=== PATIENT | female | born 1945 | race Caucasian/White ===

== ENCOUNTER 2016-11-10 14:44 | Observation (INO) | payer OTHER ==
--- NOTE | 2016-11-10 15:07 | CPEKG ---
Heart Rate: 87 RR Interval: 690 P-R Interval: 160 QRSD Interval: 86 QT Interval: 388 QTC Interval: 467 P [place]: 37 QRS [place]: -7 T Wave [place]: 41 EKG Severity - NORMAL ECG - EKG Impression: SINUS RHYTHM Electronically Signed By: Cinthya Lindo 11-Nov-2016 00:11:05
--- NOTE | 2016-11-10 15:09 | EDPHY ---
H & P Time Seen by Provider: 11/10/16 14:56 HPI/ROS: CHIEF COMPLAINT: Possible stroke, word-finding difficulties HISTORY OF PRESENT ILLNESS: 71-year-old female presents to the emergency department reporting that at 220pm, she developed abrupt onset of word-finding difficulty. 20 minutes prior to this, the patient began to have a migraine headache which she has a history of. She took nitroglycerin which is her migraine treatment. Her headache resolved. Then she had difficulty with her speech. Patient describes word-finding difficulty but the family describes no dysarthria. Words were clear but inappropriate. Patient immediately presented to the emergency department. She denies any numbness or tingling in her face, denies any weakness in the face, numbness or tingling or weakness in the arms or legs. She has no prior history of CVAs or TIAs. She has no prior history of hypertension. She does have a history of coronary artery spasm for which she takes long-acting nitro paste as well as nitroglycerin. Family describes that she was well prior to these events. EN route, the patient took another nitroglycerin. On arrival to the emergency department she feels that her word- finding difficulty has greatly improved. No fever, chills, chest pain, shortness of breath, palpitations, vomiting, diarrhea, urinary complaints, lightheadedness. REVIEW OF SYSTEMS: Aside from elements discussed in the HPI, a comprehensive 10-point review of systems was reviewed and is negative. PAST MEDICAL HISTORY: Coronary artery spasm, migraines, high cholesterol. SOCIAL HISTORY: Nonsmoker, occasional alcohol. Here with her family. VITAL SIGNS Reviewed by me. GENERAL: Well-developed, well-nourished, pleasant, in no distress. HEENT: Atraumatic. Eyes: PERRL, EOMI, no nystagmus. No icterus. No injection. Mouth: moist mucous membranes. No erythema or lesions. Neck: No meningitis. Nontender to palpation. No adenopathy. LUNGS: Clear to auscultation bilaterally, no wheezes, rhonchi or rales. CARDIAC: Regular rate and rhythm, no rubs, murmurs or gallops. ABDOMEN: Soft, nontender, nondistended, bowel sounds normal. BACK: No CVA tenderness. EXTREMITIES: No trauma. No edema. Range of motion is normal throughout. NEURO: Alert and oriented, cranial nerves II through XII are intact. Motor strength 5 over 5 in all major muscle groups. Sensation intact to light touch. Normal gait. Mild word-finding difficulty when naming objects. Fluent speech otherwise. SKIN: Warm and dry, no rash. PSYCHIATRIC: Normal mentation, no agitation. Constitutional: Initial Vital Signs Temperature (C) 36.7 C 11/10/16 14:55 Heart Rate 91 11/10/16 14:55 Respiratory Rate 16 11/10/16 14:55 Blood Pressure 167/79 H 11/10/16 14:55 O2 Sat (%) 94 11/10/16 14:55 O2 Delivery Mode Room Air Allergies/Adverse Reactions: Sulfa (Sulfonamide Antibiotics) Allergy (Intermediate, Unverified 11/10/16 16:54 ) Hives Home Medications: Medication Instructions Recorded Cetirizine [ZyrTEC 10 mg (*)] 10 mg PO DAILY 11/10/16 Citalopram Hydrobromide 10 mg PO DAILY 11/10/16 [Citalopram HBr] Dextran 70/Hypromellose 1 each OP DAILY PRN 11/10/16 [Artificial Tears] Diltiazem [Cardizem 60 MG (*)] 120 mg PO DAILY 11/10/16 Estradiol [Estradiol Transdermal 1 each TD Q7D 11/10/16 Patch] Fluticasone Nasal [Flonase Nasal 1 sprays NASAL DAILY 11/10/16 [place]] Isosorbide Mononitrate [Imdur 30 30 mg PO DAILY 11/10/16 mg (*)] Nitroglycerin [Nitrostat 0.4 mg 0.4 mg SL Q5M PRN 11/10/16 (*)] Pramipexole Di-HCl [Mirapex 1 mg 0.5 mg PO HS 11/10/16 (*)] Pravastatin Sodium 20 mg PO DAILY 11/10/16 SUMAtriptan [Imitrex 25 MG (*)] 25 mg PO Q4 PRN #20 tab 11/11/16 Medical Decision Making - Diagnostics EKG Interpretation: 12-LEAD EKG: Please see the full report in [facility]. My interpretation: Normal sinus rhythm Imaging: Results: CT scan of the head was obtained. I viewed the images independently on the PACS system. I discussed the results of the study with the radiologist. Impression: No evidence of stroke or hemorrhage. Please see the full radiology report. ED Course/Re-evaluation: 71-year-old female presents to the emergency department with an onset of word- finding difficulty. Patient's CT scan is negative. Her symptoms are somewhat mild and waxing and waning in the emergency department. Patient evaluated by Dr. Cortez, from [facility]. Patient's symptoms have largely resolved. Differential includes hypo perfusion secondary to nitroglycerin use, complex migraine, or TIA. Patient lives in [place]. She would prefer to have a evaluation for TA to be completed as soon as possible, as they are traveling extensively from here. CTA is were ordered. Patient will be admitted to the hospitalist service, to the [facility], for further evaluation for stroke versus complex migraine. 1559: Consulted with Dr. Tanner, hospitalist, who accepts admission. Dr Coto also notified of patients admission. CT angiograms also normal. Differential Diagnosis: Differential diagnoses the patient's presenting complaints was considered including but not limited to intracranial injury, TIA, ischemic cerebrovascular accident, hemorrhagic cerebrovascular accident, hypoglycemia, complex migraine , metastases, tumor, seizure, or electrolyte abnormality - Data Points Laboratory Results: Laboratory Results 11/10/16 14:50 11/10/16 14:50 Medications Given: Discontinued Medications Aspirin (Aspirin) 324 mg PO EDNOW ONE Stop: 11/10/16 15:34 Last Admin: 11/10/16 16:01 Dose: 324 mg Cetirizine HCl (Zyrtec) 10 mg PO DAILY CLAIR Stop: 05/10/17 08:59 Last Admin: 11/11/16 09:52 Dose: 10 mg Citalopram Hydrobromide (Celexa) 10 mg PO DAILY CLAIR Stop: 05/10/17 08:59 Last Admin: 11/11/16 09:39 Dose: 10 mg Diltiazem HCl (Cardizem Er Q24hr) 120 mg PO DAILY CLAIR Stop: 05/10/17 08:59 Last Admin: 11/11/16 09:40 Dose: 120 mg Fluticasone Propionate (Flonase Nasal [place]) 1 sprays EACHNARE DAILY CLAIR Stop: 05/10/17 08:59 Last Admin: 11/11/16 09:38 Dose: 1 spray Isosorbide Mononitrate (Imdur) 30 mg PO DAILY [facility] Stop: 05/10/17 08:59 Last Admin: 11/11/16 09:40 Dose: 30 mg Pramipexole Dihydrochloride (Mirapex) 0.5 mg PO HS [facility] Stop: 05/09/17 20:59 Last Admin: 11/10/16 21:37 Dose: 0.5 mg Pravastatin Sodium (Pravachol) 20 mg PO DAILY CLAIR Stop: 05/10/17 08:59 Last Admin: 11/11/16 09:38 Dose: 20 mg Departure - Departure Disposition: [facility] Clinical Impression: Expressive aphasia, possible tia Condition: Fair
[2016-11-10 15:13] LABS: % IMMATURE GRANULYOCYTES 0.5 % (0.0-1.1); ABSOLUTE IMMATURE GRANULOCYTES 0.06 10^3/uL (0.00-0.10); ADD DIFF? NO; ADD MORPH? NO; ADD SCAN? NO; ATYPICAL LYMPHOCYTE FLAG 0 (0-99); FRAGMENT RBC FLAG 0 (0-99); HEMOGLOBIN 14.5 g/dL (12.6-16.3); LEFT SHIFT FLG 0 (0-99); LIPEMIA HEMOLYSIS FLAG 80 (0-99); MEAN CELL HEMOGLOBIN 31.9 pg (27.9-34.1); MEAN CELL HEMOGLOBIN CONCENTR. 33.7 g/dL (32.4-36.7); MEAN CELL VOLUME 94.5 fL (81.5-99.8); MEAN PLATELET VOLUME 9.3 fL (8.7-11.7); PLATELET CLUMPS FLAG 0 (0-99); PLATELET COUNT 274 10^3/uL (150-400); RED BLOOD CELL COUNT 4.55 10^6/uL (4.18-5.33); RED CELL DISTRIBUTION WIDTH 13.3 % (11.5-15.2)
[2016-11-10 15:22] LABS: INR 0.96 (0.83-1.16); PROTIME(PATIENT) 12.7 SEC (12.0-15.0)
[2016-11-10 15:25] LABS: ANION GAP 14 mEq/L (8-16); CALCIUM 9.2 mg/dL (8.5-10.4); CARBON DIOXIDE 24 mEq/l (22-31); CHLORIDE 98 mEq/L (97-110); CREATININE 0.8 mg/dL (0.6-1.0); GLOMERULAR FILTRATION RATE > 60; GLUCOSE 91 mg/dL (70-100); POTASSIUM 4.6 mEq/L (3.5-5.2); SODIUM 136 mEq/L (134-144)
--- NOTE | 2016-11-10 15:27 | CT ---
CT Brain (Without Contrast) November 10, 2016 at 1501 hours History: Stroke. Comparison: None. Technique: Axial computed tomographic images of the brain without contrast. Dose reduction techniques were utilized. Findings: Ventricles, cisterns, and sulci are widened consistent with atrophy. No hydrocephalus, mid line shift/herniation, or epidural/subdural hematomas. No acute intraparenchymal hemorrhage or mass e ffect. Cerebrovascular atherosclerosis. Hypodensities in the white matter of bilateral cerebral hemis pheres. Bone windows demonstrate no displaced fractures. Paranasal sinuses and mastoid air cells are clear. Impression: 1. Moderate atrophy. 2. No acute hemorrhage, hydrocephalus, or mass effect. 3. Cerebrovascular atherosclerosis. 4. No definite acute infarct. 5. Moderate microvascular ischemic disease. Critical results relayed by Dr. Metzger to Dr. Lindo on November 10, 2016 at 1520 hours.
[2016-11-10] MEDS ORDERED: ASPIRIN 81 MG CHEWABLE TAB PO ONE (15:33)
[2016-11-10 15:37] LABS: TROPONIN I < 0.012 ng/mL (0-0.034)
[2016-11-10] MEDS ORDERED: IOPAMIDOL (ISOVUE 370) 75 ML BTL IV ONE (15:39)
--- NOTE | 2016-11-10 16:26 | DX ---
PA and Lateral Chest November 10, 2016 Clinical Indications: Acute neurologic change in a 71-year-old female; no previous chest films are a vailable for comparison. Findings: There is prominence of the right hilum is noted which is probably of vascular origin in th is patient with dilated main pulmonary artery and aorta. The lungs are clear. Mild peribronchial thi ckening is seen. There is elevation of the anterior aspect of the right hemidiaphragm. The heart and pulmonary vessels are normal. There are no pleural effusions and no pneumothorax. The bones are unremarkable for this age. Impressions 1. Right hilar prominence is probably vascular in origin. Further assessment with chest CT could be obtained as clinically directed. 2. Suspect airways disease.
--- NOTE | 2016-11-10 16:58 | CT ---
CT Angiography of the Head Clinical Indications: Were finding difficulty. R29.818 Neurological changes strongly suggesting intra cerebral aneurysm. Technique: During automated power injection of 85 mL of Isovue-370, thinly collimated spiral (volume tric) multidetector helical imaging was performed through the head. Independent three-dimensional [employer] workstation was used for additional manipulations of images by the radiologist. Dose reduction techniques were utilized. Findings: The [place] and its branches are normal. No evidence of aneurysm or vascular mal formation. No occlusions are found. Impression: Normal. I telephoned results to Dr. Cinthya Lindo at 1650 hours.
[2016-11-10] MEDS ORDERED: NON-FORMULARY NEW DRUG (Dextran 70/Hypromellose [Artificial Tears] 1 EACH) OP PRN (17:03)
--- NOTE | 2016-11-10 17:12 | CT ---
CT Angiography of the Neck (With Contrast) Clinical Indications: Word finding difficulty. Technique: During IV administration of 85 mL of Isovue-370 intravenously, helical multidetector data acquisition was obtained from the upper thorax cephalad through the skull base. The thinly collimat ed data were manipulated in multiple projections on the 3D computer workstation by the radiologist. Dose reduction techniques were utilized. Findings: Carotid bifurcations are widely patent. Both vertebral arteries are open. No evidence of occlusion, hemodynamically significant stenosis or ulceration. Bottom slice of the study demonstrates enlargement of main pulmonary artery, measuring up to 4.6 cm d iameter. The ascending aorta measures 4.1 cm diameter. Impressions 1. Patent carotid and vertebral arteries in the neck. 2. Pulmonary arterial hypertension. I telephoned results to Dr. Cinthya Lindo at 1650 hours. Note: All stenoses are calculated using NASCET Criteria.
--- NOTE | 2016-11-10 17:31 | GHP ---
[f rep st] HISTORY AND PHYSICAL DATE OF ADMISSION: 11/10/2016 CHIEF COMPLAINT: Difficulty word finding, TIA. HISTORY OF PRESENT ILLNESS: Patient is a pleasant 71-year-old female with history of coronary spasm, hyperlipidemia, and migraines, presenting with difficulty word finding. She is here with her colt pedraza visiting her kid from [place]. They drove in on Monday. Approximately 2 p.m. 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 She takes nitroglycerin for these sym ptoms, which prevents a full migraine. She will have a headache from the nitroglycerin normally that resolves in 20 minutes. After taking nitroglycerin today, the headache was gone. She then was teddy g to tell a story about her granddaughter, but could not get the words out. She said she could see t he words and hear them, but was not able to express them to their family. At that time, she took a s econd nitroglycerin. Her said she had no facial droop. She was able to tell him her name, h er date without difficulty, but still could not tell the story. She was able to finally get th e words out like she wanted here in the emergency room. At the time of my interview, she states that she is feeling like her normal self. She denies palpitations. She intermittently gets chest pain spasm-like in her chest with radiation t o the left arm. The last time was a couple months ago. She is followed by a elementary school professional in [facility] for coronary spasm. Denies any weakness or numbness with the episode today. REVIEW OF SYSTEMS: I completed a 10-point review of systems, negative except as noted in HPI. PAST MEDICAL HISTORY: 1. Coronary spasm. 2. Aortic aneurysm. 3. Hyperlipidemia. 4. Restless legs. PAST SURGICAL HISTORY: Hysterectomy, left TKA, 2 bunion surgeries, and tonsillectomy. ALLERGIES: Sulfa. MEDICATIONS: Diltiazem XL 120 mg daily, Imdur 30 mg daily, nitroglycerin 0.5 p.r.n. for migraines or chest pain, COQ 100 mg. daily. FAMILY HISTORY: Stomach cancer in grandparents. Mother of an aortic aneurysm. Father at a ge 48. PHYSICAL EXAM: VITAL SIGNS: Temperature 36.7, blood pressure was 167/79 now 144/75, heart rate in 7 0s, respirations 16, 98% on room air. GENERAL: Lying in bed, no acute distress, smiling and laughin g with her family. HEENT: PERRLA, EOMI. Oropharynx clear without exudate or erythema. CV: Regula r rate and rhythm. No murmurs, gallops, or rubs. LUNGS: Clear to auscultation. No crackles. ABDO MEN: Soft, nontender, nondistended. Positive bowel sounds. : No suprapubic tenderness. No Fole y. MUSCULOSKELETAL: 5/5 upper and lower extremity strength. NEURO: 2-12 intact. No pronator drif t. Negative Babinski. +2 symmetric biceps and brachioradialis reflexes. +1 bilateral patellar refl exes. LABS: Sodium 146, potassium 4.6, chloride 98, carbon dioxide 28, BUN 16, creatinine 0.8, glucose 91. Troponin less than 0.012. Calcium 9.2. Coags: INR 0.9, PT 12.7, PTT 25. WBC 11.6, hemoglobin 14 , hematocrit 43, platelets 274. IMAGING: EKG personally reviewed by me: Normal sinus rhythm, no evidence of ST elevation or depress ion, no arrhythmia. CT head: Moderate atrophy, no acute hemorrhage, hydrocephalus, or mass effect, moderate microvascular ischemic disease. ASSESSMENT AND PLAN: 1. Difficulty word finding concern for transient ischemic attack: Patient's symptoms have now reso lved. CT head is negative. Neck and head CTA are pending. There is no evidence of arrhythmia on EK G. Will admit to the hospital for cardiac monitoring, echocardiogram. She will be evaluated by PT, OT, and Speech Pathology. Neurology has been contacted and will see patient. Patient will need init iation of aspirin. Check lipids and hemoglobin A1c. 2. History of migraines: Migraine this afternoon that was relieved with nitroglycerin which she nor roque takes. Query if symptoms are secondary to her migraine, but will do a complete evaluation as s tated above. 3. History of coronary spasm: Continue diltiazem, Imdur, and nitroglycerin. 4. Restless legs: Continue Mirapex. 5. Diet: N.p.o. until evaluated by swallow evaluation. 6. Deep venous thrombosis prophylaxis: SCDs. DISPOSITION: Patient warrants inpatient admission given concern for TIA requiring cardiac monitoring and echocardiogram. /[id number]/MODL
[2016-11-10] MEDS ORDERED: TEARS/DEXTRAN 70/HYPROMELLOSE 15 ML OPHT.BTL OP PRN (17:52)
[2016-11-10] MEDS ORDERED: PRAMIPEXOLE 1 MG TAB PO SCH (21:00)
[2016-11-11 05:48] LABS: ANION GAP 7 mEq/L (8-16); CALCIUM 8.6 mg/dL (8.5-10.4); CARBON DIOXIDE 26 mEq/l (22-31); CHLORIDE 105 mEq/L (97-110); CHOLESTEROL 197 mg/dL (140-220); CHOLESTEROL/HDL RATIO 2.49 RATIO (1.00-4.44); CREATININE 0.9 mg/dL (0.6-1.0); GLOMERULAR FILTRATION RATE > 60; GLUCOSE 93 mg/dL (70-100); HIGH DENSITY LIPOPROTEIN 79 mg/dL (40-85); LDL/HDL RATIO 1.33 RATIO (1.00-3.22); LOW DENSITY LIPOPROTEIN 105 mg/dL (80-100); NON-HIGH DENSITY LIPOPROTEIN 118 mg/dL (90-129); POTASSIUM 4.8 mEq/L (3.5-5.2); SODIUM 138 mEq/L (134-144); TRIGLYCERIDE 68 mg/dL (35-135); VERY LOW DENSITY LIPOPROTEINS 13 mg/dL (8-25)
[2016-11-11] MEDS ORDERED: PRAVASTATIN SODIUM 20 MG TAB PO SCH (09:00)
[2016-11-11] MEDS ORDERED: NON-FORMULARY NEW DRUG (Citalopram Hydrobromide [Citalopram Hbr] 10 MG) PO SCH (09:00)
[2016-11-11] MEDS ORDERED: CETIRIZINE 10 MG TAB PO SCH (09:00)
[2016-11-11] MEDS ORDERED: CITALOPRAM 20 MG TAB PO SCH (09:00)
[2016-11-11] MEDS ORDERED: FLUTICASONE NASAL 120 SPRAYS/16 GM MDI EACHNARE SCH (09:00)
[2016-11-11] MEDS ORDERED: DILTIAZEM 60 MG TAB PO SCH (09:00)
[2016-11-11] MEDS ORDERED: DILTIAZEM CD 120 MG CAP PO SCH (09:00)
[2016-11-11] MEDS ORDERED: ISOSORBIDE MONONITRATE 30 MG TAB.SR PO SCH (09:00)
[2016-11-11 10:00] LABS: % IMMATURE GRANULYOCYTES 0.4 % (0.0-1.1); ABSOLUTE IMMATURE GRANULOCYTES 0.03 10^3/uL (0.00-0.10); ADD DIFF? NO; ADD MORPH? NO; ADD SCAN? NO; ATYPICAL LYMPHOCYTE FLAG 0 (0-99); FRAGMENT RBC FLAG 0 (0-99); HEMATOCRIT 41.7 % (38.0-47.0); LEFT SHIFT FLG 0 (0-99); LIPEMIA HEMOLYSIS FLAG 80 (0-99); MEAN CELL HEMOGLOBIN 31.6 pg (27.9-34.1); MEAN CELL HEMOGLOBIN CONCENTR. 33.6 g/dL (32.4-36.7); MEAN CELL VOLUME 94.1 fL (81.5-99.8); MEAN PLATELET VOLUME 9.1 fL (8.7-11.7); PLATELET CLUMPS FLAG 0 (0-99); PLATELET COUNT 241 10^3/uL (150-400); RED BLOOD CELL COUNT 4.43 10^6/uL (4.18-5.33); RED CELL DISTRIBUTION WIDTH 13.4 % (11.5-15.2)
--- NOTE | 2016-11-11 10:11 | ECHO ---
[id number] + + [id number] : : [place] [address] : : [phone] + + Adult Echocardiographic Report + -------+ :Name: LUIS KU MStudy Date: 11/11/2016 08:30 AM : : Hospital Admission Number: [id number] Locati on: 143: :: 1945 Gender: Female Height: 66 in : :Age: 71 yrs Race: WH Weight: 165 lb : :Reason For Study: TIA : : BSA: 1.8 meter s2 : :History: Congenital Heart Defect of enlarged PA, coronary : :spasms : + -------+ MMode/2D Measurements & Calculations IVSd: 1.1 cm RVDd: 2.3 cm FS: 31.6 % LVOT diam: 1.9 cm LVPWd: 0.90 cm LVIDd: 5.6 cm EDV(Teich): LVOT area: LVIDs: 3.8 cm 155.6 ml 2.8 cm2 ESV(Teich): 63.9 ml EF(Teich): 58.9 % LVLd ap4: 7.4 cm SV(MOD-sp4): EDV(MOD-sp4): 44.0 ml 88.0 ml LVLs ap4: 6.9 cm ESV(MOD-sp4): 44.0 ml EF(MOD-sp4): 50.0 % Normal Measurement Values: + + :LVIDd (3.5-5.7cm) IVSd (0.6-1.1cm) LVPWd (0.6-1.1cm) Aortic Root (2.0-3.7cm)Left Atrium (1.5-4.0cm): :LV Vol(d) (76-115ml) LV Vol(s) (29-48ml) Ejec Fraction (50-65%)PV Lazaro (0.6- 1.2m/s) TV Lazaro (0.4-1.0m/s) : :MV E Lazaro (0.8-1.0m/s)MV A Lazaro (0.3-1.0m/s)LVOT Lazaro (0.7-1.2m/s) Asc Ao Lazaro ( 0.9-1.8m/s) : + + Doppler Measurements & Calculations MV E max lazaro: MV V2 max: Ao V2 max: AI max lazaro: 72.6 cm/sec 71.4 cm/sec 202.5 cm/sec 438.0 cm/sec MV A max lazaro: MV max PG: Ao max PG: AI max P.7 mmHg 66.1 cm/sec 2.0 mmHg 16.4 mmHg AI dec slope: MV E/A: 1.1 MV V2 mean: Ao mean P.0 cm/sec2 MV dec time: 37.5 cm/sec 7.0 mmHg AI P1/2t: 487.8 msec 0.22 sec MV mean PG: Ao V2 mean: 1.0 mmHg 129.0 cm/sec MV V2 VTI: 21.7 cmAo V2 VTI: 48.2 cm MVA(VTI): 4.8 cm2 VIOLETA(I,D): 2.2 cm2 VIOLETA(V,D): 2.3 cm2 LV V1 max: MR max lazaro: SV(LVOT): 105.2 ml PA V2 max: 165.0 cm/sec 402.0 cm/sec 132.5 cm/sec LV V1 max PG: MR max PG: PA max P.0 mmHg 10.9 mmHg 64.6 mmHg LV V1 mean P.0 mmHg LV V1 mean: 101.0 cm/sec LV V1 VTI: 37.1 cm TR max lazaro: 201.0 cm/sec TR max P.2 mmHg RAP systole: 10.0 mmHg RVSP(TR): 26.2 mmHg Left Ventricle The left ventricle is normal in size and function. There is normal left ventricular wall thickness. Ejection Fraction = 60%. There is Doppler evidence for diastolic dysfunction. No regional wall motion abnormalities noted. Right Ventricle The right ventricle is normal in size and function. Atria The left atrial size is normal. Right atrial size is normal. The interatrial septum is intact with no evidence for an atrial septal defect. Mitral Valve The mitral valve is normal in structure and function. There is no mitral valve stenosis. There is trace to mild mitral regurgitation. Tricuspid Valve The tricuspid valve is normal in structure and function. There is no tricuspid stenosis. There is trace tricuspid regurgitation. Right ventricular systolic pressure is normal. Aortic Valve The aortic valve is trileaflet. There is no aortic stenosis. Severe aortic regurgitation. Pulmonic Valve The pulmonic valve is not well visualized. There is no pulmonic valvular stenosis. Trace pulmonic valvular regurgitation. Great Vessels Mild aortic root dilatation. Pericardium/Pleural There is a fat pad seen. Conclusion A complete two-dimensional transthoracic echocardiogram was performed (2D, M-mode, Doppler and color flow Doppler). The left ventricle is normal in size and function. Ejection Fraction = 60%. There is Doppler evidence for diastolic dysfunction. There is trace to mild mitral regurgitation. There is trace tricuspid regurgitation. Right ventricular systolic pressure is normal. The aortic valve is trileaflet. Severe aortic regurgitation. Trace pulmonic valvular regurgitation. Mild aortic root dilatation. Final Reading Physician: Lonny Rashid signed on 11/11/2016 10:10 AM Ordering Physician: Augustina Ware Performed By: Melissa Millan
--- NOTE | 2016-11-11 10:42 | PDCONSULT ---
Heater Engineer Helper Note: HOSPITAL NEUROLOGY CONSULT REQUESTING: Darlin Ware MD REASON: possible TIA HPI: 71-year-old right-handed woman with a history of coronary vasospasm, hyperlipidemia, restless legs and migraine with aura who presented to our facility yesterday due to an abrupt onset of language disturbance. The patient is visiting from out of town. She was at a tea house when she began to experience her typical migraine aura manifest as scintillating scotoma. The patient states she generally takes nitroglycerin at the onset of her aura or migraine. She took 1 and states the aura resolved. However, at 2: 00 p.m. to 2:15 p.m., the patient had abrupt onset difficulty with language expression. This was very evident to her family. There were no other focal neurologic deficits. They presented to our emergency department. EN route, the patient took another nitroglycerin. Patient states her symptoms lasted 90 minutes to 2 hours. Symptoms resolved during her emergency room stay. She was admitted for further evaluation of her abrupt onset neurologic deficit. She she has not had any prior stroke or TIA. ROS: As per the HPI, otherwise a complete 12 point ROS was performed and is negative ALLERGIES AND MEDS: As recorded in the EMR - reviewed and reconciled PFSH: As per the intake H&P by Dr. Ware from 11/10/16 EXAM: GEN: WDWN laying in NAD HEENT: NCAT, sclera anicteric, conjunctiva not injected, MMM, oropharynx clear, no scalp tenderness NECK: supple, nontender, no meningismus CV: RRR s1 s2 wo m/r/c/g. Carotid pulses 2+ wo bruit NEURO: MS: awake, alert, oriented to all spheres. Speech nondysarthric. No language disturbance. Follows commands. Attends to both sides. Recent/remote memory grossly intact. Mood euthymic. Good fund of knowledge. CN: pupils 3mm round and reactive. Fundi with sharp discs. VFF. Primary gaze centered. Full ocular motility. Facial sensation preserved. Face symmetric. Palatoglossal movements intact. Shoulder shrug and head turn strong. MOTOR: normal bulk/tone. No adventitial movements. Full power throughout. SENSORY: intact to all modalities throughout. No extinction. COORD: no ataxia FN/HS. Danita preserved. REFLEX: plantars down. No clonus. DTRS trace. GAIT: rises unassisted. Narrow base. Intact stride length/heel strike/toe lift /arm swing. Turns with 2 steps. Able to tandem without difficulty. DATA: Labs reviewed in EMR CT head wo reviewed - nothing acute CTA head/neck - patent vessels - no hemodynamically significant stenosis LDL 105 IMPRESSION AND RECOMMENDATIONS: // TRANSIENT LANGUAGE DISTURBANCE // HX MIGRAINE WITH AURA // CORONARY VASOSPASM // HYPERLIPIDEMIA Patient presented for evaluation of an abrupt onset language disturbance. Given the temporal relationship of her language disturbance to administration of nitroglycerin, as well as duration of symptoms, it is quite likely that she was experiencing a provoked late life migrainous accompaniment. Nitroglycerin has been shown to provoke or worsen migraines due to its cerebrovascular dilatation effects. However, given the semiology of her symptoms, we will rule out any ischemic process. - MRI brain wo - normotension - likely needs ASA daily, moreso for cardiac pathology - normoglycemia - followup with PCP for A1c goal < 6.5 - TTE today - stroke education provided - advised against using nitroglycerin for migraine - data supports nitro may provoke or worsen migraines - no contemporary evidence to support its use in migraine abortive treatment
--- NOTE | 2016-11-11 16:04 | MR ---
MRI of the Brain (Without Contrast) November 11, 2016 Clinical Indication: Were finding difficulty, possible TIA.. Technique: T1-weighted images were acquired axially and sagittally from the foramen magnum to the ve rtex. Axial FLAIR, fast T2-weighted, and diffusion-weighted axial images were obtained without contr ast. Findings: Underlying cerebral and cerebellar atrophy is present, associated with mild white matter m icrovascular ischemic gliotic cysts within both cerebral hemispheres. No evidence of acute cortical i schemia on diffusion-weighted imaging. No evidence of mass or mass effect or intracranial hemorrhage. There is diffuse kyphosis of the upper cervical spine, incompletely characterized. Craniocervical didier ction is otherwise normal. Skull base is intact. Carotid and vertebrobasilar flow-voids are present. Impression: 1. Underlying atrophy and white matter disease, without acute cortical ischemia. 2. Upper cervical kyphosis, incompletely characterized on this examination.
--- NOTE | 2016-11-11 17:42 | PDDCSUM ---
Discharge Summary Discharge Summary: DISCHARGE SUMMARY FOLLOW-UP ITEMS: Discussed daily aspirin with primary cardiology DATE OF ADMISSION: 11/10/2016 DATE OF DISCHARGE: 11/11/2016 DISCHARGE DIAGNOSES: 1. Complex migraine 2. Chronic coronary vasospasm CONSULTATIONS: Neurology PROCEDURES / IMAGING: MRI of the brain demonstrating atrophy with some white matter disease but no evidence of stroke, echocardiogram with ejection fraction 60%, diastolic dysfunction, no significant valvular abnormalities, head and neck CT angiograms demonstrating no evidence of flow-limiting stenosis CHIEF COMPLAINT: Acute word-finding difficulty, aphasia SUBJECTIVE: Patient is feeling well, her symptoms have completely resolved PHYSICAL EXAM ON DISCHARGE: Systolic blood pressure is 140, heart rate 70, afebrile overnight, satting well on room air, awake oriented x3 with no apparent distress, pain level 0 10, she has facial symmetry, she is moving all her extremities, her speech is fluent LABS ON DISCHARGE: LDL 105, creatinine 0.9, potassium 4.8 HOSPITAL COURSE BY PROBLEM: 1. Complex migraine. The patient presented with classic complex migraine consisting of neurologic symptoms following was seen to be a headache with aura. The neurologic symptoms seemed to evolve after taking sublingual nitroglycerin, and it is known that sublingual nitroglycerin can exacerbate migraines. Consequently, we have educated the patient not to utilize several nitroglycerin for headache management, and to utilize other abortive therapies, potentially Imitrex, if it proves to be useful. We will provide her with a script and have advised her to attempt using it during her next headache. We have advised against the regular use of nonsteroidal anti-inflammatory medications so as not to precipitate a coronary vasospasm event. The patient was seen in consultation by Neurology, and he agreed with the impression above. We performed an MRI to ensure that she had not experienced CVA, and her MRI demonstrated no evidence of CVA. The remainder of her TIA workup included echocardiogram and CT angiogram of the head and neck, and neither of those studies demonstrated any significant findings to place her at increased risk of TIA or CVA. Have advised the patient that she is at increased risk of CVA in the future from her chronic migraine, and I have recommended an aspirin 81 mg daily. She has reported that she has experienced significant bruising in the past while on aspirin, and is declining to take at this time but she will resume conversation with her primary providers in [place] upon her return. 2. Chronic coronary vasospasm. The patient utilizes as needed sublingual nitroglycerin when she experiences coronary vasospasm. She should continue doing so. She is currently receiving long-acting nitrate for her vasospasm as well as a calcium channel wolfgang. She will be continued on these medications. DISCHARGE MEDICATIONS: Please see official discharge medication reconciliation sheet in chart , Imitrex 25 mg as needed, 20 tablets prescribed. 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
[2016-11-11 18:15] VITALS: BP 134/61; PULSE 65; RESP 15; TEMP 97.2; O2SAT 95
== END 2016-11-11 18:19 | disposition home or self-care (01) ==
LOC: F1N 17:49
PROVIDERS: ADMIT Internal Medicine; ATTEND Internal Medicine
DX: G43.109 Migraine with aura, not intractable, without status migrainosus (principal); I20.1 Angina pectoris with documented spasm; E78.5 Hyperlipidemia, unspecified; I71.9 Aortic aneurysm of unspecified site, without rupture; G25.81 Restless legs syndrome
CPT/HCPCS: 70450; 70496; 70498; 70551; 71020; 92610; 93005; 93306; 97161; 97165; G0378; G8978; G8979; G8980; G8987; G8988; G8989; G8996; G8997; G8998; 82947-QW